=== PATIENT | female | born 1950 | race African-American/Black ===

== ENCOUNTER 2017-12-17 08:43 | Inpatient (IN) | payer OTHER, MEDICAID ==
[~2017-12-17] VITALS: Ht 162.6 cm; Wt 64.1 kg
[2017-12-17] MEDS ORDERED: METHYLPREDNISOLONE SOD SUCC 125 MG/2 ML VIAL IV STA (08:51)
[2017-12-17] MEDS ORDERED: IPRATROPIUM/ALBUTEROL 0.5-3(2.5)MG/3ML NEB HHN ONE (09:00)
[2017-12-17] MEDS ORDERED: LEVOFLOXACIN 750MG PREMIX 150 ML IV ONE (09:00)
[2017-12-17] MEDS ORDERED: MAGNESIUM 2 G PREMIX 50 ML IV ONE (09:00)
[2017-12-17 09:25] LABS: BASOPHILS % 0.9 % (0.0-2.0); EOSINOPHILS % 0.8 % (0.0-5.0); HEMATOCRIT. 41.8 % (36.0-48.0); HEMOGLOBIN. 14.2 g/dL (12.0-16.0); LYMPHOCYTES % 24.7 % (20.0-50.0); MEAN CORPUSCULAR HEMOGLOBIN 33.5 pg (28.0-32.0); MEAN CORPUSCULAR VOLUME 98.5 fL (81.0-99.0); MEAN PLATELET VOLUME 7.4 fl (7.4-10.4); MONOCYTES % 8.1 % (2.0-8.0); NEUTROPHILS % 65.5 % (40.0-76.0); PLATELET 274 x1000/uL (130-400); RED BLOOD CELL COUNT 4.24 mill/uL (4.2-5.4); RED CELL DISTRIBUTION WIDTH 13.4 % (11.6-14.6)
[2017-12-17 09:26] LABS: CHLORIDE 108 mEq/L (98-107)
[2017-12-17 09:27] LABS: PARTIAL THROMBOPLASTIN TIME 30.7 sec (23.4-31.0)
[2017-12-17 09:29] LABS: ETHANOL BLOOD < 10 mg/dL
[2017-12-17] MEDS ORDERED: MORPHINE SULFATE 4 MG/ML CPJ (NOT FOR IM USE) IV ONE (09:45)
[2017-12-17] MEDS ORDERED: ONDANSETRON HCL 4MG/2ML INJ IV ONE (09:45)
[2017-12-17 11:07] LABS: BG CARBOXYHEMOGLOBIN 1.7 % (0.5-1.5); BG DEOXYHEMOGLOBIN 3.4 % (0.0-5.0); BG FRACTION INSPIRED OXYGEN 32; BG HCO3 ACT 18.5 mmol/L (22.0-26.0); BG METHEMOGLOBIN 0.2 % (0.0-1.5); BG OXYGEN SATURATION 96.5 % (92.0-98.5); BG OXYHEMOGLOBIN 94.7 % (94.0-97.0); BG PCO2 27.6 mmHg (35.0-45.0); BG PH 7.445 (7.350-7.450); BG PO2 81.9 mmHg (75.0-100.0); BG SAMPLE SITE LEFT BRACHIAL; BG TOTAL HEMOGLOBIN 14.6 g/dL (12.0-18.0); BG VENT MODE NASAL CANNULA
[2017-12-17] MEDS ORDERED: MAGNESIUM/ALUMINUM HYDROXIDE/SIMETHICONE 30ML UDC PO PRN (15:00)
[2017-12-17] MEDS ORDERED: NA PHOS,M-B/NA PHOS,DI-BA ENEMA 118ML PR PRN (15:00)
[2017-12-17] MEDS ORDERED: CLONIDINE 0.1MG TABLET PO PRN (15:00)
[2017-12-17] MEDS ORDERED: ACETAMINOPHEN 325MG TABLET PO PRN (15:00)
[2017-12-17] MEDS ORDERED: DIPHENHYDRAMINE 50MG/ML VIAL IV PRN (15:00)
[2017-12-17] MEDS ORDERED: IPRATROPIUM/ALBUTEROL 0.5-3(2.5)MG/3ML NEB INH PRN (15:00)
[2017-12-17] MEDS ORDERED: ACETAMINOPHEN 650MG SUPP PR PRN (15:00)
[2017-12-17 15:29] VITALS: BP 120/74
[2017-12-17 16:08] VITALS: BP 120/74
[2017-12-17] MEDS ORDERED: NICOTINE 14MG PATCH TD NR (16:14)
[2017-12-17] MEDS ORDERED: POTASSIUM CHLORIDE 20MEQ TABLET SR PO NR (16:14)
[2017-12-17] MEDS ORDERED: ONDANSETRON 4MG ODT PO PRN (16:15)
[2017-12-17 16:37] LABS: BG CARBOXYHEMOGLOBIN 0.8 % (0.5-1.5); BG DEOXYHEMOGLOBIN 6.1 % (0.0-5.0); BG FRACTION INSPIRED OXYGEN 21; BG METHEMOGLOBIN 0.1 % (0.0-1.5); BG OXYGEN SATURATION 93.8 % (92.0-98.5); BG PCO2 31.4 mmHg (35.0-45.0); BG PH 7.444 (7.350-7.450); BG SAMPLE SITE LEFT BRACHIAL; BG TOTAL HEMOGLOBIN 14.2 g/dL (12.0-18.0); BG VENT MODE ROOM AIR
[2017-12-17] MEDS: ENOXAPARIN 40MG/0.4ML SYR SUBCUT SCH (17:49)
[2017-12-17] MEDS: METHYLPREDNISOLONE SOD SUCC 40 MG/ML VIAL IV SCH (17:49)
[2017-12-17] MEDS: MONTELUKAST SODIUM 10MG TABLET PO SCH (17:49)
[2017-12-17] MEDS ORDERED: IPRATROPIUM/ALBUTEROL 0.5-3(2.5)MG/3ML NEB INH SCH (18:00)
[2017-12-17 20:00] VITALS: BP 121/78
[2017-12-17] MEDS: FAMOTIDINE 20MG/2ML VIAL IV SCH (22:00)
[2017-12-17] MEDS: METRONIDAZOLE 500 MG PREMIX 100 ML IV SCH (22:19)
[2017-12-17] MEDS ORDERED: MIRT45TA5 MT (23:06)
[2017-12-17] MEDS ORDERED: HYDR50CA5 MT (23:06)
[2017-12-17] MEDS ORDERED: ASCO100T12 PO (23:06)
[2017-12-17] MEDS ORDERED: METH-612 PO (23:06)
[2017-12-17] MEDS ORDERED: ASCO-339 MT (23:06)
[2017-12-17] MEDS ORDERED: CIPR500S3 PO (23:49)
[2017-12-17] MEDS ORDERED: ESCI20TA MT (23:49)
[2017-12-17] MEDS ORDERED: GABA800T97 MT (23:49)
[2017-12-17] MEDS ORDERED: ONDA8TAB9 PO (23:49)
[2017-12-17] MEDS ORDERED: CHOL500010 MT (23:49)
[2017-12-17] MEDS ORDERED: IBUP100T53 MT (23:49)
[2017-12-17] MEDS ORDERED: FERR325T6 MT (23:49)
[2017-12-17] MEDS ORDERED: IBUP-2030 MT (23:49)
[2017-12-17] MEDS ORDERED: BACL-141 PO (23:49)
[2017-12-17] MEDS ORDERED: QUET400T53 MT (23:49)
[2017-12-17] MEDS ORDERED: LISI-604 MT (23:49)
[2017-12-17] MEDS ORDERED: ACET-2708 MT (23:49)
[2017-12-17] MEDS ORDERED: METR500T4 MT (23:49)
[2017-12-17] MEDS ORDERED: NAPR220C15 PO (23:49)
[2017-12-18] VITALS: BP 117/70
[2017-12-18] MEDS: METHYLPREDNISOLONE SOD SUCC 40 MG/ML VIAL IV SCH ×3 (00:56→18:05)
[2017-12-18] MEDS: IPRATROPIUM/ALBUTEROL 0.5-3(2.5)MG/3ML NEB INH SCH ×5 (02:23→20:35)
[2017-12-18 04:00] VITALS: BP 122/74
[2017-12-18] MEDS: METRONIDAZOLE 500 MG PREMIX 100 ML IV SCH ×3 (05:47→22:53)
[2017-12-18 06:19] LABS: HEMATOCRIT. 38.5 % (36.0-48.0); HEMOGLOBIN. 12.9 g/dL (12.0-16.0); MEAN CORPUSCULAR VOLUME 98.3 fL (81.0-99.0); MEAN PLATELET VOLUME 7.7 fl (7.4-10.4); PLATELET 268 x1000/uL (130-400); RED BLOOD CELL COUNT 3.91 mill/uL (4.2-5.4); RED CELL DISTRIBUTION WIDTH 13.4 % (11.6-14.6)
[2017-12-18 06:25] LABS: CHLORIDE 111 mEq/L (98-107)
[2017-12-18 06:33] LABS: HDL CHOLESTEROL 78 mg/dL (40-59)
[2017-12-18 06:34] LABS: LDL CHOLESTEROL 88 mg/dL (5-100)
[2017-12-18 06:36] LABS: T4 FREE 1.07 ng/dL (0.76-1.46)
[2017-12-18 08:00] VITALS: BP 120/63
[2017-12-18] MEDS: FAMOTIDINE 20MG/2ML VIAL IV SCH (08:50)
[2017-12-18] MEDS: NICOTINE 14MG PATCH TD SCH (08:50)
[2017-12-18] MEDS ORDERED: LEVOFLOXACIN 500MG PREMIX 100 ML IV SCH (09:00)
[2017-12-18 12:00] VITALS: BP 115/70
[2017-12-18] MEDS: HYDROCODONE/ACETAMINOPHEN 5/325MG TABLET PO PRN ×2 (15:15→20:02)
[2017-12-18 16:00] VITALS: BP 118/78
[2017-12-18 16:54] LABS: PLATELET ESTIMATE NORMAL
[2017-12-18] MEDS: MONTELUKAST SODIUM 10MG TABLET PO SCH (18:06)
[2017-12-18] MEDS: ENOXAPARIN 40MG/0.4ML SYR SUBCUT SCH (18:06)
[2017-12-19] VITALS: BP 120/68
[2017-12-19] MEDS: IPRATROPIUM/ALBUTEROL 0.5-3(2.5)MG/3ML NEB INH SCH ×5 (00:15→15:18)
[2017-12-19] MEDS: METHYLPREDNISOLONE SOD SUCC 40 MG/ML VIAL IV SCH ×2 (02:16→10:42)
[2017-12-19 04:00] VITALS: BP 145/77
[2017-12-19] MEDS: METRONIDAZOLE 500 MG PREMIX 100 ML IV SCH (06:20)
[2017-12-19 08:00] VITALS: BP 145/83
[2017-12-19] MEDS ORDERED: LEVOFLOXACIN 500MG PREMIX 100 ML IV SCH (09:00)
[2017-12-19] MEDS ORDERED: FAMOTIDINE 20MG/2ML VIAL IV SCH (09:00)
[2017-12-19] MEDS: NICOTINE 14MG PATCH TD SCH (10:44)
[2017-12-19] MEDS ORDERED: PROMETHAZINE HCL 6.25 MG/5 ML 118ML PO PRN (11:30)
[2017-12-19 12:00] VITALS: BP 124/64
[2017-12-19 13:12] LABS: HEMATOCRIT. 40.6 % (36.0-48.0); HEMOGLOBIN. 13.5 g/dL (12.0-16.0); MEAN CORPUSCULAR HEMOGLOBIN 33.2 pg (28.0-32.0); MEAN CORPUSCULAR VOLUME 99.8 fL (81.0-99.0); PLATELET 292 x1000/uL (130-400); RED BLOOD CELL COUNT 4.07 mill/uL (4.2-5.4); RED CELL DISTRIBUTION WIDTH 13.5 % (11.6-14.6)
[2017-12-19 15:52] VITALS: BP 124/61
[2017-12-19 16:00] VITALS: BP 125/71
[2017-12-19 20:47] LABS: PLATELET ESTIMATE NORMAL
== END 2017-12-19 17:15 | disposition home or self-care (01) | DRG 190 ==
LOC: EDBD 08:43 → ER 09:19 → 5WST 11:45 → EDBEDREQ 11:56 → SUPCPDRO 12:24 → ENRESERV 14:08
PROVIDERS: ADMIT Internal Medicine; ATTEND Internal Medicine
DX: J44.0 Chronic obstructive pulmonary disease with (acute) lower respiratory infection (principal); J18.9 Pneumonia, unspecified organism; J44.1 Chronic obstructive pulmonary disease with (acute) exacerbation; E87.6 Hypokalemia; E86.0 Dehydration; F17.210 Nicotine dependence, cigarettes, uncomplicated; I10 Essential (primary) hypertension; Y95 Nosocomial condition; M19.90 Unspecified osteoarthritis, unspecified site; R19.7 Diarrhea, unspecified; T38.0X5A Adverse effect of glucocorticoids and synthetic analogues, initial encounter; Z91.19 Patient's noncompliance with other medical treatment and regimen; Z71.6 Tobacco abuse counseling; Z90.49 Acquired absence of other specified parts of digestive tract; Z88.0 Allergy status to penicillin; Y92.89 Other specified places as the place of occurrence of the external cause; Z79.899 Other long term (current) drug therapy
CPT/HCPCS: 36415; 36600; 71045; 74176; 80053; 80061; 82375; 82805; 83605; 83880; 84439; 84443; 84484; 85025; 85379; 85610; 85730; 87040; 93005; 93306; 94640; 96365; 96368; 96375; 97162; 99285; G0482; J1650; J1956; J2920; J2930; J3475; J3490; J7040; J7620; Q0169